=== PATIENT | female | born 1970 | race Caucasian/White ===

== ENCOUNTER 2017-02-23 08:54 | Emergency (ER) | payer BC ==
[~2017-02-23] VITALS: Ht 160 cm; Wt 82.1 kg
[~2017-02-23 08:54] MED LIST: ANTIVERT25 MG PO; COLACE100 MG PO; FLOMAX0.4 MG PO; NAPROXEN500 MG PO; NOHOMEMEDS; NORCO 5/3251 TABLET PO; PERCOCET 5/31 TABLET PO; PROCTOFOAM-HC10 GM PR
[2017-02-23 08:58] VITALS: BP 126/83
[2017-02-23] MEDS ORDERED: ULTRAM50 MG PO (09:09)
== END 2017-02-23 09:17 | disposition home or self-care (01) ==
LOC: EME 08:54
DX: H00.016 Hordeolum externum left eye, unspecified eyelid (principal)
CPT/HCPCS: 99281; 99283

== ENCOUNTER 2017-08-28 13:13 | Emergency (ER) | payer BC ==
[~2017-08-28] VITALS: Ht 160 cm; Wt 79.8 kg
[~2017-08-28 13:13] MED LIST changes: +ULTRAM50 MG PO
[2017-08-28 13:38] LABS: HEMATOCRIT 42.2 % (36.0-46.0); MCH 30.7 PG (29.0-34.0); MCHC 33.9 G/DL (30.0-36.0); MCV 90.6 FL (83-99); MEAN PLAT.VOLUME 10.3 uM^3 (9.5-12.4); PLATELET COUNT 236 K/uL (156-360); RBC DIS.WIDTH-SD 40.1 % (39-53); RED BLOOD COUNT 4.66 M/uL (3.80-5.20); WHITE BLOOD COUNT 7.2 K/uL (4.1-10.2)
[2017-08-28 13:49] LABS: CHLORIDE 109 mEq/L (99-109); POTASSIUM 3.7 mEq/L (3.7-5.4); SODIUM 140 mEq/L (136-147)
[2017-08-28 13:51] LABS: GLUCOSE 95 mg/dL (70-99)
[2017-08-28 13:52] LABS: ANION GAP 8 MEQ/L (2-14)
[2017-08-28 13:54] LABS: GFR ESTIMATE (CALCULATED) > 59 mL/min/
[2017-08-28 13:55] LABS: UREA NITROGEN (BUN) 11 mg/dL (9-23)
[2017-08-28 14:03] LABS: ADD MIUA? YES; BILIRUBIN NEGATIVE; BLOOD MODERATE; COLOR YELLOW ((YELLOW)); GLUCOSE (STRIP) NEGATIVE; KETONES NEGATIVE; LEUKOCYTES NEGATIVE; NITRITE NEGATIVE; PROTEIN (STRIP) NEGATIVE; SPECIFIC GRAVITY 1.017 (1.000-1.030); UROBILINOGEN 0.2 MG/DL (0.2-1.0)
[2017-08-28 14:18] LABS: BACTERIA RARE /HPF; EPITHELIAL CELLS RARE /HPF; MUCUS TRACE /LPF; UCUL ADDED? NO; WHITE BLOOD CELLS 0-5 /HPF (0-5)
[2017-08-28] MEDS ORDERED: NORCO 5/3251 TABLET PO (15:49)
[2017-08-28] MEDS ORDERED: ZOFRAN ODT8 MG PO (15:49)
[2017-08-28 16:05] VITALS: BP 134/93
== END 2017-08-28 16:10 | disposition home or self-care (01) ==
LOC: EME 13:13
DX: R10.9 Unspecified abdominal pain (principal); R11.2 Nausea with vomiting, unspecified; N21.0 Calculus in bladder; N20.0 Calculus of kidney; Z87.442 Personal history of urinary calculi; F17.200 Nicotine dependence, unspecified, uncomplicated
CPT/HCPCS: 74176; 80048; 81003; 85027; 99281; 99284; J1885

== ENCOUNTER 2018-02-13 07:05 | Day surgery (SDC) | payer BC, OTHER ==
[~2018-02-13] VITALS: Ht 160 cm; Wt 81.6 kg
[~2018-02-13 07:05] MED LIST changes: +ZOFRAN ODT8 MG PO
[2018-02-13 07:58] VITALS: BP 130/65
[2018-02-13] MEDS ORDERED: MOTRIN600 MG PO (10:39)
[2018-02-13] MEDS ORDERED: NORCO 5/3251 TABLET PO (10:39)
[2018-02-13 12:04] VITALS: BP 140/73
== END 2018-02-13 12:26 | disposition home or self-care (01) ==
LOC: SDC 07:05
PROVIDERS: Obstetrics & Gynecology
PROC: 0U574ZZ Destruction of Bilateral Fallopian Tubes, Percutaneous Endoscopic Approach (ICD-10-PCS; principal; 2018-02-13)
DX: Z30.2 Encounter for sterilization (principal); D25.1 Intramural leiomyoma of uterus; E66.9 Obesity, unspecified; F17.200 Nicotine dependence, unspecified, uncomplicated; Z68.30 Body mass index [BMI] 30.0-30.9, adult; N39.3 Stress incontinence (female) (male); Z82.49 Family history of ischemic heart disease and other diseases of the circulatory system; Z88.0 Allergy status to penicillin
CPT/HCPCS: 81025; J0131; J1100; J1170; J1885; J2250; J2405; J2710; J2765; J7643; S0020